=== PATIENT | female | born 1945 | race Caucasian/White ===

== ENCOUNTER 2016-10-22 15:04 | Inpatient (IN) | payer OTHER, MEDICARE ==
[~2016-10-22] VITALS: Ht 157.5 cm; Wt 56.7 kg
--- NOTE | 2016-10-22 15:28 | ED GENERAL ADULT ---
History of Present Illness General Chief Complaint: Neuro Symptoms/ Deficit Stated Complaint: SLURRED SPEACH YESTERDAY Source: patient, family Exam Limitations: no limitations Vital Signs & Intake/Output Vital Signs & Intake/Output Vital Signs Date Time Temp Pulse Resp B/P Pulse O2 O2 Flow FiO2 Ox Delivery Rate 10/22 1642 96.9 79 20 142/75 98 Room Air 10/22 1510 97.7 88 18 148/96 99 Room Air Allergies Coded Allergies: Fish Containing Products (Severe, ANAPHYLAXIS 10/22/16) Sulfa (Sulfonamide Antibiotics) (Severe, RASH 10/22/16) Triage Note: 71 Y/O FEMALE STATES SHE WAS "HAVING TROUBLE" SPEAKING FOR APPROX 4 HOURS YESTERDAY. STATES "SHE WASNT MAKING ANY SENSE". PT AND FAMILY DENY NOTING ANY FACIAL DROOP OR ARM DRIFT STATING THE ONLY DEFICIT WAS THE SPEECH. PT DENIES ANY COMPLAINTS AT PRESENT. "I FEEL GOOD". SPEECH CLEAR. Triage Nurses Notes Reviewed? yes Onset: Gradual Duration: hour(s): (4-6 HRS) Timing: remote history Injury Environment: home Severity: moderate Severity Numbers: 7 No Modifying Factors: none HPI: Patient is a 71-year-old female presenting to the emergency Department via family with chief complaint of slurred speech and difficulty thinking that lasted approximately 4-6 hours yesterday. Patient was at home when symptoms started. Her was notified, patient did not want to go to bed emergency department for evaluation. They made an appointment with primary care physician today and the primary care physician sent him to the ER for evaluation. Patient reports history of mini strokes 10 years ago. Denies being on a blood thinner. She currently still smokes heavily per family. Denies any facial droop, weakness. Per family she is PRETTY much at baseline at this time, but still seems a little confused per family. Denies abdominal pain. No chest pain or shortness of breath. No palpitations. Denies any recent upper respiratory symptoms or congestion. No fevers or chills. No neck or back pain. (ALIRIO CROWELL,FAYE) Reconcile Medications Amlodipine Besylate 5 MG TABLET 1 TAB PO DAILY BP (Reported) Aspirin (Ecotrin*) 81 MG TABLET.DR 1 TAB PO DAILY HEART/BLOOD (Reported) Cholecalciferol (Vitamin D3) (Vitamin D) 2,000 UNIT TABLET 1 TAB PO DAILY SUPPLEMENT (Reported) Cyanocobalamin (Vitamin B-12) 1,000 MCG TABLET 1 TAB PO DAILY SUPPLEMENT ( Reported) Levothyroxine Sodium 88 MCG TABLET 1 TAB PO DAILY THYROID (Reported) Lovastatin 20 MG TABLET 1 TAB PO DAILY CHOLESTEROL (Reported) (ELIECER ASTORGA,DION) Past History Travel History Traveled to [place] past 21 day No Medical History Any Pertinent Medical History? 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 No (FAYE CANO) Review of Systems Review of Systems Constitutional: Reports: no symptoms. Comments Review of systems: See HPI, All other systems negative. Constitutional, no chills fever or weight loss HEENT: No visual changes no sore throat no congestion Cardiovascular: No chest pain ,palpitation , orthopnea or ankle swelling Skin, no jaundice no rashes Respiratory: No dyspnea cough sputum or hemoptysis GI: No nausea no vomiting : No dysuria No hematuria Muscle skeletal: no back pain, no neck pain, Neurologic: No numbness NO ALVA Psych: No stress anxiety Immunology: No splenectomy or history of AIDS (FAYE CANO) Physical Exam Physical Exam General Appearance: well developed/nourished, no apparent distress, alert, awake , comfortable Comments: Well-developed well-nourished person in no acute distress HEENT:extraocular motion intact, no nystagmus. Pupils equally round and reactive to light and accommodation. Left eyelid ptosis but it responds to elevation. Nose is atraumatic. External auditory canal and Tympanic membranes clear. Pharynx normal. No swelling or edema. Neck: Supple, no lymphadenopathy, normal range of motion without pain or tenderness Back: NontendeR Cardiovascular: Regular rate and rhythms no murmurs rubs or gallops, normal JVP Respiratory: Chest nontender. No respiratory distress.breath sounds clear to auscultation bilaterally Extremity: No edema, no calf tenderness to palpation, normal and equal pulses. Neuro: Alert oriented x3, motor sensory normal, cranial nerves II through XII grossly intact. Negative Romberg. Negative drop arm test. Speech is clear. Skin: No appreciable rash on exposed skin, skin is warm and dry. Psych: Mood and affect is normal, memory and judgment is normal. Core Measures ACS in differential dx? Yes CVA/TIA Diagnosis: Yes Severe Sepsis Present: No Septic Shock Present: No (ALIRIO CROWELL,FAYE) Progress Differential Diagnoses I considered the following diagnoses in my evaluation of the patient: TIA, CVA, electrolyte abnormality, dehydration, UTI, pneumonia Plan of Care: Orders Procedure Date/time Status Regular Diet 10/23 B Active Heart Healthy Diet 10/22 D Complete Patient Data 10/22 1733 Active OXYGEN SETUP (GEN) 10/22 1627 Active Saline Lock 10/22 1627 Active Admit to inpatient 10/22 1627 Active Vital Signs 10/22 1627 Active Activity/Ambulation 10/22 1627 Active Code Status 10/22 1627 Active Telemetry/[place] 10/22 1518 Active URINALYSIS 10/22 1518 Active TROPONIN LEVEL 10/22 1518 Complete PARTIAL THROMBOPLASTIN TIME 10/22 1518 Complete PROTHROMBIN TIME 10/22 1518 Complete COMPREHENSIVE METABOLIC PANEL 10/22 1518 Complete CBC WITHOUT DIFFERENTIAL 10/22 1518 Complete EKG 10/22 1518 Active Laboratory Tests 10/22/16 1648: Urine Color Pending, Urine Clarity Pending, Urine pH Pending, Ur Specific [place] Pending, Urine Protein Pending, Urine Ketones Pending, Urine Nitrite Pending, Urine Bilirubin Pending, Urine Urobilinogen Pending, Ur Leukocyte Esterase Pending, Ur Microscopic SEDIMENT EXAMINED, Urine RBC Pending, Urine Hemoglobin Pending, Urine Glucose Pending 10/22/16 1540: Anion Gap 14, Estimated GFR > 60, BUN/Creatinine Ratio 22.9, Glucose 87, Calcium 9.4, Total Bilirubin 0.4, AST 13 L, ALT 25, Alkaline Phosphatase 83, Troponin I < 0.01, Total Protein 7.2, Albumin 4.0, Globulin 3.2, Albumin/Globulin Ratio 1.3 , PT 11.1, INR 1.06, APTT 36, CBC w Diff NO MAN DIFF REQ, RBC 4.74, MCV 82.9, MCH 27.3, RDW 15.1 H, MPV 9.0, Gran % 70.4, Lymphocytes % 21.1, Monocytes % 6.6 , Eosinophils % 1.4, Basophils % 0.5, Absolute Granulocytes 10.2 H, Absolute Lymphocytes 3.1, Absolute Monocytes 1.0 H, Absolute Eosinophils 0.2, Absolute Basophils 0.1, PUBS MCHC 33.0 Diagnostic Imaging: Viewed by Me: Radiology Read, CT Scan. Discussed w/RAD: Radiology Read, CT Scan. Radiology Impression: COMPARISON: None. TECHNIQUE: Contiguous axial imaging was performed from the skull base to vertex without intravenous administration of contrast. DLP: 529.16 mGy-cm. FINDINGS: There is no evidence of acute intracranial hemorrhage or territorial infarction. No abnormal mass effect or midline shift is seen. Zhou to white matter differentiation is well preserved. No extra-axial fluid collections are identified. The ventricles and sulci are commensurately prominent consistent with mild diffuse volume loss. There are patchy areas of low attenuation in the periventricular and subcortical white matter, most consistent with microvascular ischemic disease. There are areas of low attenuation in the bilateral basal ganglia and within the jose, consistent with chronic infarcts. There is diffuse heterogenous density from the body of the sphenoid bone and the clivus. There are degenerative changes in the temporomandibular joint. The soft tissues are unremarkable. The visualized mastoid air cells and paranasal sinuses are well-aerated. IMPRESSION: 1. There are no acute bleeds or territorial infarcts. 2. Heterogenous density is noted in the body of the sphenoid bone and the clivus, which may be consistent with an infiltrative process, a fibro-osseous process or Paget's disease. Recommend MRI scan for further assessment. 3. There are sequelae of microvascular ischemic disease, chronic infarcts and diffuse volume loss. Initial ED EKG: SINUS RHYTHM, 83 BPM, PROBABLE INFERIOR INFARCT AGE- INDETERMINATE Comments: On arrival patient is neurologically intact, left eyelid ptosis, mild confusion per family. Patient over CT hEAD, CBC, CMP, troponin, EKG, chest x-ray. Patient resting comfortably. Patient took a baby aspirin this morning, she'll be given 243 mg aspirin to complete a full dose aspirin. Patient family informed of all lab results and imaging study. CT shows questionable hyperdense mass on the sphenoid bone. It will be further clarified with MRI tomorrow. Patient will be admitted for CVA, neurology consultation. Patient passed a swallow evaluation. 10/22/2016 4:46:07 PMPatient was given a sip of water without coughing or choking. Patient then proceeded to drink entire cup of water without difficulty. Patient passed small evaluation. Meal tray ordered. PT SEEN AND EVALED BY DR GONZÁLES. (FAYE CANO) Departure Departure Time of Disposition: 1625 Disposition: STILL A PATIENT Condition: Stable Clinical Impression Primary Impression: CVA (cerebral vascular accident) Qualifiers: CVA mechanism: unspecified Qualified Code: I63.9 - Cerebral infarction, unspecified Referrals: SALLIE KHAN MD (PCP/Family) Departure Forms: Customer Survey General Discharge Information Admission Note Spoke With: VIANEY BREWER MD Documentation of Exam: Documentation of any treatments & extenuating circumstances including Concerns Regarding Discharge (functional status, medication knowledge or non-compliance, living conditions, etc.) that warrant an admission rather than observation: Patient requiring neuro consultation, MRI for further evaluation, serial neuro checks, discharge at this time would be medically harmful. (FAYE CANO) PA/DB2 SYSTEMS PROGRAMMER Co-Sign Statement Statement: ED Attending supervision documentation- x I saw and evaluated the patient. I have also reviewed all the pertinent lab results and diagnostic results. I agree with the findings and the plan of care as documented in the PA's/DB2 SYSTEMS PROGRAMMER's documentation. [] I have reviewed the ED Record and agree with the PA's/DB2 SYSTEMS PROGRAMMER's documentation. [] Additions or exceptions (if any) to the PAs/DB2 SYSTEMS PROGRAMMER's note and plan are summarized below: [] (ELIECER ASTORGA,DION) Procedures Additional Procedures Additional Procedures: SWALLOW STUDY Progress: Patient was able swallow thin liquids without choking or coughing without difficulty. (FAYE CANO) Critical Care Note Critical Care Note Critical Care Time: 30-74 min (FAYE CANO)
[2016-10-22 15:55] LABS: ABSOLUTE BASOPHIL COUNT 0.1 /CUMM (0.0-0.2); ABSOLUTE EOSINOPHIL COUNT 0.2 /CUMM (0.0-0.7); ABSOLUTE GRANULOCYTE CT 10.2 /CUMM (1.4-6.5); ABSOLUTE LYMPH COUNT 3.1 /CUMM (1.2-3.4); BASOPHIL % 0.5 % (0.0-2.0); EOSINOPHIL % 1.4 % (0-5); GRANULOCYTE % 70.4 % (42.2-75.2); HEMATOCRIT 39.3 % (37-47); MEAN CORPUSCULAR HGB 27.3 PG (27.0-31.0); MEAN CORPUSCULAR VOLUME 82.9 FL (81.0-99.0); PLATELET COUNT 374 /CUMM (130-400); RBC DISTRIBUTION WIDTH 15.1 % (11.5-14.5); RED BLOOD CELL CT 4.74 /CUMM (4.20-5.40); WHITE BLOOD CELL COUNT 14.5 /CUMM (4.8-10.8)
[2016-10-22 16:14] LABS: PT 11.1 SEC (9.4-12.5); PTT 36 SEC (25-37)
--- NOTE | 2016-10-22 16:17 | CT SCAN REPORT ---
EXAMINATION: CT HEAD WITHOUT CONTRAST CLINICAL INFORMATION: Slurred speech. Assess for intracranial pathology. COMPARISON: None. TECHNIQUE: Contiguous axial imaging was performed from the skull base to vertex without intravenous administration of contrast. DLP: 529.16 mGy-cm. FINDINGS: There is no evidence of acute intracranial hemorrhage or territorial infarction. No abnormal mass effect or midline shift is seen. Zhou to white matter differentiation is well preserved. No extra-axial fluid collections are identified. The ventricles and sulci are commensurately prominent consistent with mild diffuse volume loss. There are patchy areas of low attenuation in the periventricular and subcortical white matter, most consistent with microvascular ischemic disease. There are areas of low attenuation in the bilateral basal ganglia and within the jose, consistent with chronic infarcts. There is diffuse heterogenous density from the body of the sphenoid bone and the clivus. There are degenerative changes in the temporomandibular joint. The soft tissues are unremarkable. The visualized mastoid air cells and paranasal sinuses are well-aerated. IMPRESSION: 1. There are no acute bleeds or territorial infarcts. 2. Heterogenous density is noted in the body of the sphenoid bone and the clivus, which may be consistent with an infiltrative process, a fibro-osseous process or Paget's disease. Recommend MRI scan for further assessment. 3. There are sequelae of microvascular ischemic disease, chronic infarcts and diffuse volume loss.
--- NOTE | 2016-10-22 16:54 | RADIOLOGY REPORT ---
EXAMINATION: XR PORTABLE CHEST CLINICAL INFORMATION: Confusion. Cardiomegaly. Evaluate for pneumonia. COMPARISON: None. TECHNIQUE: Portable view of the chest was obtained. FINDINGS: Single AP view of the chest demonstrates pulmonary hypoinflation. Of note, there are nodular opacities within the right upper lobe and right lung base, measuring approximately 2.4 x 3.4 cm and 1.4 cm respectively. There is minimal dependent atelectasis. Cardiac mediastinal contours are within normal limits. Soft tissues appear unremarkable. No acute osseous abnormality is demonstrated. IMPRESSION: No focal airspace consolidation to suggest infection. Nodular opacities within the right upper lobe and right lung base, measuring up to 2.4 x 3.4 cm within the right upper lobe. These nodular opacities are indeterminate. Malignancy cannot be excluded. Recommend correlation with contrast-enhanced chest CT.
[2016-10-22] MEDS ORDERED: LEVOTHYROXINE88 MCG PO (16:55)
[2016-10-22] MEDS ORDERED: VITAMIN B-121000 MC3 PO (16:56)
[2016-10-22] MEDS ORDERED: AMLODIPINE BESYL5 M1 PO (16:56)
[2016-10-22] MEDS ORDERED: LOVASTATIN20 M1 PO (16:56)
[2016-10-22] MEDS ORDERED: VITAMIN D2000 UNI1 PO (16:56)
[2016-10-22] MEDS ORDERED: ASPIRIN EC81 M1 PO (16:57)
--- NOTE | 2016-10-22 17:49 | History & Physical ---
SUBHASH ASTORGA,[facility] 10/22/16 1748: General Information and HPI MD Statement: I have seen and personally examined NERY AUSTIN and documented this H&P. The patient is a 71 year old F who presented with a patient stated chief complaint of slurred speech on the morning of 10/21/2016. Source of Information: patient, family, old records Exam Limitations: no limitations History of Present Illness: Ms. Rich is a 71-year-old female with past medical history of pituitary adenoma , non-Hodgkin lymphoma for the last 10 years and questionable TIA approximately 10 years ago presented to the emergency department on 10/22/2016 after experiencing a transient episode of slurred speech. The patient's family stated that her episode of transient or slurred speech began yesterday 10/21/2016 at approximately 8 AM when the patient was having breakfast. The patient was unable to articulate any conversation like she could normally previously do. The patient then went to sleep from 9 AM to approximately 4 PM when she woke up and stated that she felt better. During the episode of transient slurred speech the patient denies any weakness, bowel or bladder dysfunction or drooling and any facial muscle abnormalities. Over the course of the evening the patient reported no further complaints. This morning she woke up and went to visit her primary care physician barrel raiser helper Dr. Allison. When the above history was related to Dr. Allison he recommended that she come to the emergency department immediately. The family of the patient does state that over the last 5-7 years the patient has had a gradual decline in mental status and function. They state that she has deteriorated and has a harder time finding the correct words to be able to articulate the way she is feeling. The patient denies any fever, chills, nausea, vomiting although does does state that she has had increasing dizziness. Allergies/Medications Allergies: Coded Allergies: Fish Containing Products (Severe, ANAPHYLAXIS 10/22/16) Sulfa (Sulfonamide Antibiotics) (Severe, RASH 10/22/16) Compliance With Home Meds: GOOD Past History Travel History Traveled to [place] past 21 day No Medical History Neurological: TIA EENT: NONE Cardiovascular: HIGH CHOLESTEROL Respiratory: NONE Gastrointestinal: NONE Hepatic: NONE Renal: NONE Musculoskeletal: NONE Psychiatric: NONE Endocrine: "THYROID" Blood Disorders: NONE Cancer(s): LYMPHOMA DIRECTOR OF LITIGATION/Reproductive: NONE Surgical History Surgical History: non-contributory Past Family/Social History Family History Relations & Conditions if any FATHER, , Age 90s. MOTHER, , Age 90. Psychosocial History Where do you live? Home Who Do You Live With? spouse Services at Home: None Primary Language: Jordanian Smoking Status: Current Everyday Smoker (Approximaely 30 pack year ) ETOH Use: occasional use Illicit Drug Use: denies illicit drug use Living Will? yes Functional Ability ADLs Independent: dressing, eating, toileting, bathing. Ambulation: independent IADLs Needs Assist: shopping, housework, finances, food prep, telephone, transportation, medication admin. Employment History Employment Retired Review of Systems Review of Systems Constitutional: Denies: chills, fever, malaise, weakness. Cardiovascular: Reports: palpitations. Denies: chest pain, edema, orthopena. Respiratory: Denies: cough, hemoptysis, orthopnea, short of breath. GI: Denies: bloating, constipation, diarrhea, distention. Genitourinary: Reports: frequency. Denies: discharge, dysuria, hematuria, hesitation. Musculoskeletal: Denies: back pain, gout, joint pain, joint swelling. Exam & Diagnostic Data Last 24 Hrs of Vital Signs/I&O Vital Signs Date Time Temp Pulse Resp B/P Pulse O2 O2 Flow FiO2 Ox Delivery Rate 10/22 1912 96.6 84 18 128/81 95 Room Air 10/22 1642 96.9 79 20 142/75 98 Room Air 10/22 1510 97.7 88 18 148/96 99 Room Air Intake & Output 10/22 1600 10/22 0800 10/22 0000 Intake Total Output Total Balance Patient 56.245 kg Weight Physical Exam General Appearance Alert, Oriented X3, Cooperative, No Acute Distress HEENT PERRLA, Mucous Membr. moist/pink Lymphatic Axillary nl Cardiovascular Regular Rate, Normal S1, Normal S2 Lungs Clear to Auscultation, Normal Air Movement Abdomen Normal Bowel Sounds, Soft, No Tenderness Neurological Normal Gait, Normal Speech, Strength at 5/5 X4 Ext, Normal Tone, Cranial Nerves 3-12 NL Extremities No Clubbing, No Cyanosis, No Edema Vascular Normal Pulses Last 24 Hrs of Labs/Po: Laboratory Tests 10/22/16 1648: Urine Color YEL, Urine Clarity CLEAR, Urine pH 6.0, Ur Specific [place] >= 1.030 , Urine Protein NEG, Urine Ketones NEG, Urine Nitrite NEG, Urine Bilirubin NEG, Urine Urobilinogen 0.2, Ur Leukocyte Esterase NEG, Ur Microscopic SEDIMENT EXAMINED, Urine RBC 5-10 H, Urine WBC 1-3 H, Ur Epithelial Cells FEW, Urine Mucus MOD H, Urine Hemoglobin SMALL H, Urine Glucose NEG 10/22/16 1540: Anion Gap 14, Estimated GFR > 60, BUN/Creatinine Ratio 22.9, Glucose 87, Calcium 9.4, Total Bilirubin 0.4, AST 13 L, ALT 25, Alkaline Phosphatase 83, Troponin I < 0.01, Total Protein 7.2, Albumin 4.0, Globulin 3.2, Albumin/Globulin Ratio 1.3 , PT 11.1, INR 1.06, APTT 36, CBC w Diff NO MAN DIFF REQ, RBC 4.74, MCV 82.9, MCH 27.3, RDW 15.1 H, MPV 9.0, Gran % 70.4, Lymphocytes % 21.1, Monocytes % 6.6 , Eosinophils % 1.4, Basophils % 0.5, Absolute Granulocytes 10.2 H, Absolute Lymphocytes 3.1, Absolute Monocytes 1.0 H, Absolute Eosinophils 0.2, Absolute Basophils 0.1, PUBS MCHC 33.0 Assessment/Plan Assessment: This is a 71-year-old female with past medical history of non-Hodgkin's lymphoma and past TIA who presented to the emergency hospital at [facility] on 2016 after a transient episode of 4 hours of slurring speech. The pa #TIA most likely caused by combination of hypertension, accelerated atherosclerosis (likely due to long standing smoking history) Neurological consult in a.m. MRI in a.m. Carotid Dopplers bilaterally to rule out stenosis. Echocardiogram to rule out any structural heart disease which, emboli may predispose the patient to TIA symptoms Continue aspirin. Q4 Neurochecks Continue statin. High dose shown to provide anti-inflammatory properties. #Rule out ACS Admit the patient to telemetry floor for continuous monitoring Serial troponins and EKG Rule out any cardiac dysarhythmias #History of non-Hodgkin's lymphoma A courtesy call has been placed with the service of Dr. Db So MD Patient can follow-up as an outpatient #Incidental findings on head CT rule out Likely Paget's disease Although alkaline phosphatase is is normal. Continue trending for hypercalcemia. Will follow up with an MRI in the a.m. #Hypertension Allow for permissive hypertension however ensure blood pressure does not exceed 180 systolic over 110 diastolic Continue Amlodipine if pressure exceeds 180/110, or begin in the AM. #History of Hypothyroidism Continue levothyroxin Consider TSH and free T4 in a.m. #General conditioning PT eval in a.m. Swallow eval in a.m. Maintain aspiration precautions. Patients with TIA and stroke aspiration pneumonia can be a significant contributing factor leading to morbidity mortality. #Diet Heart healthy #DVT prophylaxis Lovenox #Code Full code As Ranked By This Provider Problem List: 1. Transient ischemic attack Qualifiers Transient cerebral ischemia type: unspecified Qualified Code: G45.9 - Transient cerebral ischemic attack, unspecified 2. CVA (cerebral vascular accident) Qualifiers CVA mechanism: unspecified Qualified Code: I63.9 - Cerebral infarction, unspecified Core Measures/Miscellaneous Acute Coronary Syndrome ACS Diagnosis: No Cerebrovascular Accident CVA/TIA Diagnosis: Yes Congestive Heart Failure CHF Diagnosis: No Venous Thromboembolism VTE Risk Factors: Age > 40 VTE Prophylaxis Ordered Inpt: Mech & Pharm No Mech VTE prophylaxis d/t: No contraindications No VTE Pharm Prophylaxis d/t: No contraindications VTE Diagnosis: No VTE Type: NONE VTE Confirmed by (Test): NONE Severe Sepsis Severe Sepsis Present: No Septic Shock Septic Shock Present: No Miscellaneous Documentation Attending Case Discussed With: VIANEY BREWER MD Primary Care Physician: SALLIE KHAN MD Patient sees these Specialists NA Level of Patient Care: Telemetry JESSICA REA MD 10/22/16 1751: Resident Review Statement Resident Statement: examined this patient, discussed with applications intern, agreed with applications intern, reviewed EMR data (avail), reviewed images Other Findings: 71 year old woman, with a past medical history of Non-Hodgkins Lymphoma, diagnosed 10 years ago, had been on Rituximab x 10 years, stopped [address] Patel, history of Pituitary removal 30 years ago, stroke 10 years ago on baby Aspirin, hypertension, Hyperlipidemia, hypothyroidism, presents with a history of slurred speech that started yesterday at 8 am, associated with word finding difficulty, and difficulty thinking and confusion. The symptoms lasted for almost 6 hours as per the family, the intensity and frequency slowly decreasing to baseline. No associated chest pain, palpitations, dizziness, visual changes, drooping of the mouth, drooling or numbness and weakness of any extremities. The patients , and 2 daughters who were at bed side reported the patient has been declining over all in functionality and cognition since the past 5 years. Her gait has become unstable, she feels tired all the time, sleeps most of the day, and has intermittent memory issue but the aforementioned symptoms were sudden and acute. She did report palpitations in the past that settle on their own. Denied N/V/D. No urinary or bowel incontinence or symptoms. Was evaluated once after a fall and was found to have dehydration. The reported her falling all of a sudden at times as well. Smoker 10 cig/day x 60 years, stopped alcohol 10 years ago, no drugs, compliant with medications. Mother passed at 94, father at 90. +Smokers cough. No sick contacts. Afebrile, HR 88, RR 18, BP 148/96 and O2 Sat 99% on RA On exam: AAO x 3, in no acute distress. Dry mucous membranes, PERRLA CVS: RRR, no murmurs, S1 and S2 heard Respiratory: Mild bilateral wheeze. Abd: NT, ND, BS+ Neuro: NO facial droop, all sensations intact, CN intact, motor and sensory functions intact, power 5/5 in all extremities Peripheral pulses palpable, no edema WBC 14.5, no bands, BUN/Cr 16/0.7, Alk phos 83, AST/ALT 13/25, trop < 0.01 CT Head: No acute bleeds or territorial infarcts. Heterogenous density noted in the body of the sphenoid bone and the clivus,? infiltrative process vs ?fibro- osseous process or Paget's disease. There are sequelae of microvascular ischemic disease, chronic infarcts and diffuse volume loss. CXR: Nodular opacities within the right upper lobe and right lung base, measuring up to 2.4 x 3.4 cm within the right upper lobe, indeterminate, malignancy cannot be excluded. EKG: NSR @ 83, NO ST-T wave changes Assessment: 1. TIA vs CVA 2. New findings on CT Head with possible Pagets disease 3. New nodular opacity in RUL and RLL 4. Leukocytosis 5. Smokers cough 6. Smoker 7. Hypertension 8. Hyperlipidemia 9. Hypothyroidism 10. History of NHL was on Rituximab Plan: Admit to Tele Vitals every shift 1. TIA vs CVA: Patient with a history of stroke 10 years ago, on lovastatin 20 mg, and baby aspirin, presented with acute symptoms of slurred speech, and cognitive deficit including word finding difficulties and confusion at 8 am yesterday lasting approx. 6 hours, resolving with functional capacity and cognition returning to baseline. CT shows now evidence of new infarct but squelae of micro vascular changes, history of HLD, HTN and on baby aspirin. -Will get MRI done -High dose ASA given in the ED -Will give loading dose of Plavix, as patient likely failed ASA therapy -Will then continue n dual therapy ASA 81 and Plavix 75 mg PO Daily -Will change to Atorvastatin 80 mg PO Daily from Lovastatin 20 mg -Will get trops and EKg done at 10 pm and 6 am to rule out ACS -Will get ECHO done -Will monitor on Tele for possible arrhythmia -Patient was already having food when the medical team went for evaluation -Will get official swallow eval -PT/OT therapy -Carotid US -Neuro Consult 2. New findings on CT Head with possible Pagets disease: - Alp Phos normal - Will get MRI done for detailed evaluation of the CT head findings - Possible outpatient workup and treatment 3. New nodular opacity in RUL and RLL: - Patient has been a heavy smoker, history of NHL. - May consider CT scan with IV contrast for further evaluation. Possibility of malignancy cannot be ruled out. 4. Leukocytosis: Afebrile, has dry cough, chronic likely secondary to smoking, mild wheezing with cough, no upper respiratory or urinary symptoms otherwise - Will continue to monitor off antibiotics 5. Smoker: Currently no urge, but may start Nicotine patch - Smokes 10 cig/day x 60 years 7. Hypertension: -Uses Amlodipine at home -Will hold for permissive hypertension -BP 148/96 128/81 with no intervention 8. Hyperlipidemia: -Will change to Atorvastatin 80 mg PO Daily from Lovastatin 20 mg 9. Hypothyroidism: c/w Levothyroxine 10. History of NHL was on Rituximab: Courtesu call to Dr. So/Dr. Patel 11. Heart Healthy Diet 12. Pain pathway: Mild, Moderate and Severe ordered 13. SC Lovenox 14. FULL CODE: temporarily, but do not want to live on life support for prolonged time as per living will as per Case discussed with Dr. Jimenez BREWER MD,VIANEY 10/22/162127: General Information and HPI Allergies/Medications Home Med list Amlodipine Besylate 5 MG TABLET 1 TAB PO DAILY BP (Reported) PERMISSIVE HYPERTENSION Aspirin (Ecotrin*) 81 MG TABLET. 1 TAB PO DAILY HEART/BLOOD (Reported) Atorvastatin Calcium 80 MG TABLET 80 MG PO 1700 TIA Cholecalciferol (Vitamin D3) (Vitamin D) 2,000 UNIT TABLET 1 TAB PO DAILY SUPPLEMENT (Reported) Clopidogrel Bisulfate (Plavix) 75 MG TABLET 75 MG PO DAILY TIA Cyanocobalamin (Vitamin B-12) 1,000 MCG TABLET 1 TAB PO DAILY SUPPLEMENT ( Reported) Levothyroxine Sodium 88 MCG TABLET 1 TAB PO DAILY THYROID (Reported) Lovastatin 20 MG TABLET 1 TAB PO DAILY CHOLESTEROL (Reported) Reason to Stop at ADM: CHANGED TO ATORVASTATIN Attending MD Review Statement Attending Statement Attending MD Statement: examined this patient, discuss w/resident/PA/DOOR SLINGER, agreed w/resident/PA/DOOR SLINGER, reviewed EMR data (avail), discussed with nursing, reviewed images, amended to note Attending Assessment/Plan: The patient is a 71 yo female with h/o non-Hodgkin's Lymphoma (s/p Rituxan therapy- last doses 6 months ago, ?h/o maintenance doses), essential HTN, HL, hypothyroidism, and h/o "mini-stroke" 10 years ago presents in the [place] ED after a 4 hour episode of transient difficulty speaking and decreased cognition which occurred yesterday. Family stated that she is now approximately baseline, however has been weak recently. She denied any focal weakness or numbness. No headache, seizures, chest pain, dyspnea or other symptoms. She has been taking ASA 81 mg daily for at least 10 years. Physical Exam: VS: T 97.7, P 88, R 18, BP 148/96-142/75, PO 98-99% RA HEENT: eyes- PERRLA, EOMI dionicio- moist mucosa Neck: no bruits, no JVD or adenopathy Chest: diminished BS, clear Cor: RRR, nl S1, S2, w/o murm Abd: BS+, soft, NT, - masses or HSM Ext: no edema Neuro: alert & oriented x 3, non-focal exam, gait not tested (patient states OK, family ?unsteady) Labs/Tests- as above Impression/Plan: #Transient Aphasia/Cognition Decline- 4 hour episode that occurred yesterday. Patient with h/o "mini-stroke" 10 years ago and has been taking ASA 81 mg daily since that time. Concern that this may represent TIA or ?CVA (patient family states close to baseline). Doubt PRODUCT COORDINATOR involvement with lymphoma. Plan: Continue ASA 81 mg daily. Add Plavix 75 mg daily. MRI brain in morning. Carotid US. ECHO Cardiogram (TTE). Change statin to high potency- Atorvastatin 80 mg daily. Admit to telemetry - q4h neuro checks. Neurology consult. #H/O Non-Hodgkin's Lymphomaa- was being treated with Rituxan- last doses 6 months ago. Patient describes possible maintenance therapy? Plan: Will need records from Oncology. #RUL/RLL Nodules/Opacities- on CXR. No clinical infection. No fever/ leukocytosis. Plan: OP follow-up - CT. Observe off of Antibiotics- watch for fever/pulmonary symptoms. #Nicotine Dependence- currently smoker. Plan: Encourage smoking cessation. #Essential Hypertension - BP OK at present. Plan: Continue Amlodipine- maintain BP sys 140 range or greater. #Hyperlipidemia- was on Lovastatin. Plan: As above, will change to Atorvastatin. #Hypothyroid- clinically euthyroid. Plan: Continue Levothyroxine. #Abnormal Sphenoid Bone on CT Head- "Heterogenous density is noted in the body of the sphenoid bone and the clivus, which may be consistent with an infiltrative process, a fibro-osseous process or Paget's disease. Recommend MRI scan for further assessment." The patient has had a h/o pituitary surgery? Not clear if this may be related. Plan: MRI ordered.
--- NOTE | 2016-10-22 18:13 | Admission Certification ---
Admission Certification Certification Statement - As attending physician, I certify that at the time of - admission, based on clinical presentation, severity of - symptoms, need for further diagnostic testing and - therapeutic interventions, and risk of adverse outcomes - without in-hospital treatment, in my clinical assessment, - this patient requires an acute hospital stay for a minimum - of two nights or longer. I have also considered psychsocial - factors such as support system, advanced age, financial - issues, cognitive issues, and failed out-patient treatments, - past re-admission history, safety of patient, and lack of - compliance as applicable. Specific rationale supporting this admission is: The patient presents with transient (4 hour) episode of slurring of speech, cognitive difficulties, most c/w TIA or possible CVA. Needs admission to telemetry to monitor for arrhthmia, ECHO, carotid US, MRI brain, Plavix/ASA, neuro consult.
[2016-10-22 22:10] VITALS: BP 127/76
--- NOTE | 2016-10-23 05:37 | PN- Housestaff ---
SUBHASH ASTORGA,[facility] 10/23/16 0536: Subjective Follow-up For: ?TIA Tele-Events Since Last Visit: NA Patient in the ED Subjective: Ms Draper was seen and examined this morning. She is resting comfortably in bed and is still currently in the emergency department. Patient states that she had a tough night last night owing to the multiple interruptions that she had. She also had to use the bathroom twice and did not have a toilet in her room. Apart from that mentioned above the patient denies any neurological abnormalities and/or motor weaknesses. Patient states that she feels well and is eager to be discharged. Patient denies any changes to her vision, auditory, sensation, or speech. Patient denies any fever, chills, nausea, vomiting. Review of Systems Constitutional: Reports: see HPI. Objective Last 24 Hrs of Vital Signs/I&O Vital Signs Date Time Temp Pulse Resp B/P Pulse O2 O2 Flow FiO2 Ox Delivery Rate 10/23 0818 96.9 79 20 126/81 96 Room Air 10/23 0800 96 Room Air 10/23 0800 96.9 79 20 126/81 96 Room Air 10/23 0621 97.9 74 18 133/76 98 10/22 2210 97.4 75 20 127/76 95 Room Air 10/22 2155 97.4 75 20 127/76 95 Room Air 10/22 1912 96.6 84 18 128/81 95 Room Air 10/22 1642 96.9 79 20 142/75 98 Room Air 10/22 1510 97.7 88 18 148/96 99 Room Air Intake & Output 10/23 1600 10/23 0800 10/23 0000 Intake Total 1160 Output Total 800 Balance 360 Intake, Oral 1160 Output, Urine 800 Patient 56.699 kg Weight Physical Exam General Appearance: Alert, Oriented X3, Cooperative, No Acute Distress Lymphatic: Axillary nl Cardiovascular: Regular Rate, Normal S1, Normal S2 Lungs: Increased breath sounds Bilaterally. ?Expiratory Wheezing Right Abdomen: Normal Bowel Sounds, Soft, No Tenderness Neurological: Normal Speech, Strength at 5/5 X4 Ext, Normal Tone, Cranial Nerves 3-12 NL Extremities: No Cyanosis, No Edema Vascular: Normal Pulses Current Medications: Current Medications Sig/Nadia Start time Last Medication Dose Route Stop Time Status Admin Acetaminophen 650 MG Q6P PRN 10/22 2029 AC PO Aspirin 0 .STK-MED ONE 10/22 1741 DC PO Aspirin 243 MG ONCE ONE 10/22 1645 DC 10/22 PO 10/22 1646 1745 Aspirin Buffered 81 MG DAILY 10/23 1000 AC 10/23 PO 1000 Atorvastatin Calcium 80 MG 1700 10/22 2030 AC 10/22 PO 2111 Cholecalciferol 2,000 IU DAILY 10/23 1000 AC 10/23 PO 1000 Clopidogrel Bisulfate 75 MG DAILY 10/23 1000 AC 10/23 PO 1000 Clopidogrel Bisulfate 0 .STK-MED ONE 10/23 0854 DC PO Clopidogrel Bisulfate 0 .STK-MED ONE 10/22 2051 DC PO Clopidogrel Bisulfate 300 MG ONCE ONE 10/22 2029 DC 10/22 PO 10/22 Cyanocobalamin 1,000 MCG DAILY 10/23 1000 AC 10/23 PO 1000 Enoxaparin Sodium 40 MG 2100 10/23 2099 AC SC Enoxaparin Sodium 0 .STK-MED ONE 10/22 2051 DC SC Enoxaparin Sodium 40 MG DAILY 10/22 2018 DC 10/22 SC 2110 Levothyroxine Sodium 0.088 MG DAILY 10/23 1000 AC 10/23 PO 1000 Oxycodone/ 1 TAB Q6P PRN 10/22 2029 AC Acetaminophen PO Oxycodone/ 2 TAB Q6P PRN 10/22 2029 AC Acetaminophen PO Polyethylene Glycol 17 GM DAILY PRN 10/22 2029 AC PO Senna/Docusate Sodium 1 TAB DAILY PRN 10/22 2030 AC PO Last 24 Hrs of Lab/Po Results Last 24 Hrs of Labs/Mics: Laboratory Tests 10/23/16 0615: Troponin I < 0.01, Triglycerides 75, Cholesterol 137, LDL Cholesterol, Calc 65, HDL Cholesterol 57, Cholesterol/HDL Ratio 2 10/22/16 2200: Troponin I < 0.01 10/22/16 1648: Urine Color YEL, Urine Clarity CLEAR, Urine pH 6.0, Ur Specific [place] >= 1.030 , Urine Protein NEG, Urine Ketones NEG, Urine Nitrite NEG, Urine Bilirubin NEG, Urine Urobilinogen 0.2, Ur Leukocyte Esterase NEG, Ur Microscopic SEDIMENT EXAMINED, Urine RBC 5-10 H, Urine WBC 1-3 H, Ur Epithelial Cells FEW, Urine Mucus MOD H, Urine Hemoglobin SMALL H, Urine Glucose NEG 10/22/16 1540: Anion Gap 14, Estimated GFR > 60, BUN/Creatinine Ratio 22.9, Glucose 87, Calcium 9.4, Total Bilirubin 0.4, AST 13 L, ALT 25, Alkaline Phosphatase 83, Troponin I < 0.01, Total Protein 7.2, Albumin 4.0, Globulin 3.2, Albumin/Globulin Ratio 1.3 , PT 11.1, INR 1.06, APTT 36, CBC w Diff NO MAN DIFF REQ, RBC 4.74, MCV 82.9, MCH 27.3, RDW 15.1 H, MPV 9.0, Gran % 70.4, Lymphocytes % 21.1, Monocytes % 6.6 , Eosinophils % 1.4, Basophils % 0.5, Absolute Granulocytes 10.2 H, Absolute Lymphocytes 3.1, Absolute Monocytes 1.0 H, Absolute Eosinophils 0.2, Absolute Basophils 0.1, PUBS MCHC 33.0 Orders Radiology Findings: SERVICE DATE: 10/23/16-2020 EXAM TYPE: MRI - MRI-HEAD W/O LEILANI MR BRAIN WITHOUT CONTRAST CLINICAL INFORMATION: Slurred speech with word finding difficulty. Question Paget's disease on CT head. COMPARISON: Head CT from 10/22/2015. TECHNIQUE: MRI of the brain without contrast was obtained using routine sequences. FINDINGS: There are a few subacute lacunar infarcts within the left frontal lobe on image 61 and 57 of series 3 that exhibit increased signal on diffusion-weighted imaging and intermediate signal on the ADC map. No additional acute infarcts are appreciated. There are multiple punctate foci of susceptibility artifact within the brainstem and within the right cerebellum, likely chronic petechial microhemorrhages. There is global cerebral volume loss. T2 signal changes throughout the supratentorial white matter and brainstem suggest moderate chronic microangiopathy. There are multiple chronic lacunar infarcts within the brainstem. Chronic lacunar infarcts within the deep barajas nuclei bilaterally. The major arterial flow voids are maintained. Paranasal sinuses and mastoid air cells are well aerated. Cerebellar tonsillar position is normal. There is heterogeneous marrow signal within the clivus. The boundaries of the sphenoid sinuses are difficult to evaluate on this MRI in the previous CT. In light of the prior CT findings, further evaluation with a bone scan and possible central skull base protocol MRI with and without IV contrast would be helpful in further assessment. IMPRESSION: - There are a few subacute lacunar infarcts within the left frontal lobe. - There is heterogeneous marrow signal within the clivus. The boundaries of the sphenoid sinuses are difficult to evaluate on this MRI and the previous CT. In light of the prior CT findings, further evaluation with a bone scan and possible central skull base protocol MRI with and without IV contrast would be helpful in further assessment. 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 DICTATED BY: HARDIK SIERRA MD Miscellaneous Findings: SERVICE DATE: 10/22/16 EXAM TYPE: US - [id number] DOPPLER EXAMINATION: DUPLEX BILATERAL CAROTID ULTRASOUND CLINICAL INFORMATION: Aphasia. Headache. Hypertension. COMPARISON: None. TECHNIQUE: Real-time ultrasound and Doppler techniques (integrating B-mode 2D vascular images, Doppler spectral analysis and color flow Doppler imaging) were utilized to interrogate the extracranial carotid and vertebral arteries bilaterally. The degree of stenosis determined by criteria similar to NASCET. FINDINGS: Right side: 1. Small amount of plaque is seen in the ECA/ICA region. The right CCA/ICA is tortuous. 2. The common carotid artery velocity is 74 cm/s. 3. The internal carotid artery velocities are 43 cm/s systolic and 18 cm/s diastolic. 4. The external carotid artery velocity is 71 cm/s. Left side: 1. No appreciable plaque is seen in the ECA/ICA region. 2. The common carotid artery velocity is 88 cm/s. 3. The internal carotid artery velocities are 43 cm/s systolic and 18 cm/s diastolic. 4. The external carotid artery velocity is 60 cm/s. ADDITIONAL FINDINGS: 1. The vertebral arteries show antegrade flow. IMPRESSION: 1. RIGHT: Minimal, nonhemodynamically significant stenosis of the proximal right internal carotid artery corresponding to a 0-49% stenosis by velocity criteria. 2. LEFT: No significant stenosis of the proximal left internal carotid artery by velocity criteria. 3. No evidence for hemodynamically significant stenosis in the external carotid arteries. DICTATED BY: ILDA MARCH MD SERVICE DATE: 10/23/16 EXAM TYPE: MRI - MRI-HEAD W/O LEILANI MR BRAIN WITHOUT CONTRAST CLINICAL INFORMATION: Slurred speech with word finding difficulty. Question Paget's disease on CT head. COMPARISON: Head CT from 10/22/2015. TECHNIQUE: MRI of the brain without contrast was obtained using routine sequences. FINDINGS: There are a few subacute lacunar infarcts within the left frontal lobe on image 61 and 57 of series 3 that exhibit increased signal on diffusion-weighted imaging and intermediate signal on the ADC map. No additional acute infarcts are appreciated. There are multiple punctate foci of susceptibility artifact within the brainstem and within the right cerebellum, likely chronic petechial microhemorrhages. There is global cerebral volume loss. T2 signal changes throughout the supratentorial white matter and brainstem suggest moderate chronic microangiopathy. There are multiple chronic lacunar infarcts within the brainstem. Chronic lacunar infarcts within the deep barajas nuclei bilaterally. The major arterial flow voids are maintained. Paranasal sinuses and mastoid air cells are well aerated. Cerebellar tonsillar position is normal. There is heterogeneous marrow signal within the clivus. The boundaries of the sphenoid sinuses are difficult to evaluate on this MRI in the previous CT. In light of the prior CT findings, further evaluation with a bone scan and possible central skull base protocol MRI with and without IV contrast would be helpful in further assessment. IMPRESSION: - There are a few subacute lacunar infarcts within the left frontal lobe. - There is heterogeneous marrow signal within the clivus. The boundaries of the sphenoid sinuses are difficult to evaluate on this MRI and the previous CT. In light of the prior CT findings, further evaluation with a bone scan and possible central skull base protocol MRI with and without IV contrast would be helpful in further assessment. 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 DICTATED BY: HARDIK SIERRA MD Assessment/Plan Assessment: This is a 71-year-old female with past medical history of non-Hodgkin's lymphoma and past TIA who presented to the emergency hospital at [facility] on 2016 after a transient episode of 4 hours of slurring speech. The patient had a previous episode of questionable TIA approximately 10 years ago. #TIA most likely caused by combination of hypertension, accelerated atherosclerosis (likely due to long standing smoking history) Neurological recommended patient remain on telemetry to rule out any dysrhythmias. Neurology service for the recommended continuing aspirin, status and Plavix at discharge. Further reevaluation of MRI showed that the patient may have suffered from a subacute lacunar infarct within the left frontal lobe. Carotid Dopplers bilaterally to rule out stenosis. Echocardiogram to rule out any structural heart disease which, emboli may predispose the patient to TIA symptoms Continue aspirin. Q4 Neurochecks Continue statin. High dose shown to provide anti-inflammatory properties. #Rule out ACS Admit the patient to telemetry floor for continuous monitoring Serial troponins and EKG: all were less than: 0.01, 0.01, 0.01 Rule out any cardiac dysarhythmias Patient scheduled for echocardiogram. If echocardiogram is normal patient will likely be discharged this afternoon and likely have to follow up with model technician next week. #History of non-Hodgkin's lymphoma A courtesy call has been placed with the service of Dr. Db So MD Patient can follow-up as an outpatient #Incidental findings on head CT rule out Likely Paget's disease Although alkaline phosphatase is is normal. Continue trending for hypercalcemia. #Hypertension Blood pressure this morning 126/81. Allow for permissive hypertension however ensure blood pressure does not exceed 180 systolic over 110 diastolic Continue Amlodipine if pressure exceeds 180/110, or begin in the AM. #History of Hypothyroidism Continue levothyroxin Consider TSH and free T4 in a.m. #General conditioning PT eval in a.m. PT evaluation done this a.m. did not require any skilled acute rehabilitation services. Swallow eval in a.m. Maintain aspiration precautions. Patients with TIA and stroke aspiration pneumonia can be a significant contributing factor leading to morbidity mortality. Smoking cessation counseling given to the patient this a.m. Patient was not interested in a nicotine patch. #Diet Heart healthy #DVT prophylaxis Lovenox #Code Full code Problem List: 1. Transient ischemic attack 2. CVA (cerebral vascular accident) Pain Ratin Pain Location: No Pain Reported Pain Goal: Remain pain free Pain Plan: Tylenol PRN Tomorrow's Labs & Rationales: None Patient's Concerns: This is a 71-year-old female with past medical history of non-Hodgkin's lymphoma and past TIA who presented to the emergency hospital at [facility] on 2016 after a transient episode of 4 hours of slurring speech. The patient did have a similar episode of questionable TIA approximately 10 years ago. #TIA most likely caused by combination of hypertension, accelerated atherosclerosis (likely due to long standing smoking history) MRI - Results received. Carotid Dopplers bilaterally to rule out stenosis: No significant stenosis on the left right internal carotid artery corresponding to 0-49% stenosis. Echocardiogram to rule out any structural heart disease which, emboli may predispose the patient to TIA symptoms, Pending Continue aspirin. Q4 Neurochecks Continue statin. High dose statin shown to provide anti-inflammatory properties. #Rule out ACS Admit the patient to telemetry floor for continuous monitoring Serial troponins and EKG Rule out any cardiac dysarhythmias #History of non-Hodgkin's lymphoma A courtesy call has been placed with the service of Dr. Db So MD Patient can follow-up as an outpatient, Dr. Strickland was notified and formed this morning and informed this am. #Incidental findings on head CT rule out Likely Paget's disease Although alkaline phosphatase is is normal. Continue trending for hypercalcemia. Will follow up with an MRI in the a.m. #Hypertension Allow for permissive hypertension however ensure blood pressure does not exceed 180 systolic over 110 diastolic Continue Amlodipine if pressure exceeds 180/110, or begin in the AM. #History of Hypothyroidism Continue levothyroxin Consider TSH and free T4 in a.m. #General conditioning PT eval in a.m. Swallow eval in a.m. Maintain aspiration precautions. Patients with TIA and stroke aspiration pneumonia can be a significant contributing factor leading to morbidity mortality. #Diet Heart healthy #DVT prophylaxis Lovenox #Code Full code VIANEY BREWER MD 10/23/16 2204: Attending MD Review Statement Attending Statement Attending MD Statement: examined this patient, discuss w/resident/PA/STORAGE CONSULTANT, agreed w/resident/PA/STORAGE CONSULTANT, discussed with family, reviewed EMR data (avail), discussed with nursing, discussed with case mgmt, reviewed images, amended to note Attending Assessment/Plan: The patient was seen and discussed with house staff. Reviewed the MRI brain with Neuroradiology and they do believe that there is a small frontal infarction that is acute (along with TIA). ECHO done at end of day and reviewed with Dr. Henderson who stated normal ECHO w/o valvular disease. OK to discharge to home today on ASA 81 mg/Plavix 75 mg daily and change statin from Lovastatin to Atorvastatin 80 mg daily. Will discuss with PCP. Consider change OP BP med to ARB which has also been demonstrated to decrease risk of recurrent stroke. Patient also given number to call for free [place] Smoking Cessation class (next 11/06). Also explained to family.
[2016-10-23 08:00] VITALS: BP 126/81
--- NOTE | 2016-10-23 08:05 | ULTRASOUND REPORT ---
EXAMINATION: DUPLEX BILATERAL CAROTID ULTRASOUND CLINICAL INFORMATION: Aphasia. Headache. Hypertension. COMPARISON: None. TECHNIQUE: Real-time ultrasound and Doppler techniques (integrating B-mode 2D vascular images, Doppler spectral analysis and color flow Doppler imaging) were utilized to interrogate the extracranial carotid and vertebral arteries bilaterally. The degree of stenosis determined by criteria similar to NASCET. FINDINGS: Right side: 1. Small amount of plaque is seen in the ECA/ICA region. The right CCA/ICA is tortuous. 2. The common carotid artery velocity is 74 cm/s. 3. The internal carotid artery velocities are 43 cm/s systolic and 18 cm/s diastolic. 4. The external carotid artery velocity is 71 cm/s. Left side: 1. No appreciable plaque is seen in the ECA/ICA region. 2. The common carotid artery velocity is 88 cm/s. 3. The internal carotid artery velocities are 43 cm/s systolic and 18 cm/s diastolic. 4. The external carotid artery velocity is 60 cm/s. ADDITIONAL FINDINGS: 1. The vertebral arteries show antegrade flow. IMPRESSION: 1. RIGHT: Minimal, nonhemodynamically significant stenosis of the proximal right internal carotid artery corresponding to a 0-49% stenosis by velocity criteria. 2. LEFT: No significant stenosis of the proximal left internal carotid artery by velocity criteria. 3. No evidence for hemodynamically significant stenosis in the external carotid arteries.
--- NOTE | 2016-10-23 11:19 | MRI REPORT ---
MR BRAIN WITHOUT CONTRAST CLINICAL INFORMATION: Slurred speech with word finding difficulty. Question Paget's disease on CT head. COMPARISON: Head CT from 10/22/2015. TECHNIQUE: MRI of the brain without contrast was obtained using routine sequences. FINDINGS: There are a few subacute lacunar infarcts within the left frontal lobe on image 61 and 57 of series 3 that exhibit increased signal on diffusion-weighted imaging and intermediate signal on the ADC map. No additional acute infarcts are appreciated. There are multiple punctate foci of susceptibility artifact within the brainstem and within the right cerebellum, likely chronic petechial microhemorrhages. There is global cerebral volume loss. T2 signal changes throughout the supratentorial white matter and brainstem suggest moderate chronic microangiopathy. There are multiple chronic lacunar infarcts within the brainstem. Chronic lacunar infarcts within the deep barajas nuclei bilaterally. The major arterial flow voids are maintained. Paranasal sinuses and mastoid air cells are well aerated. Cerebellar tonsillar position is normal. There is heterogeneous marrow signal within the clivus. The boundaries of the sphenoid sinuses are difficult to evaluate on this MRI in the previous CT. In light of the prior CT findings, further evaluation with a bone scan and possible central skull base protocol MRI with and without IV contrast would be helpful in further assessment. IMPRESSION: - There are a few subacute lacunar infarcts within the left frontal lobe. - There is heterogeneous marrow signal within the clivus. The boundaries of the sphenoid sinuses are difficult to evaluate on this MRI and the previous CT. In light of the prior CT findings, further evaluation with a bone scan and possible central skull base protocol MRI with and without IV contrast would be helpful in further assessment. 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
--- NOTE | 2016-10-23 12:08 | Cons- Cardiology ---
General Information and HPI Consulting Request Date of Consult: 10/23/16 Requested By: VIANEY BREWER MD Reason for Consult: CVA Source of Information: patient, old records History of Present Illness: Patient is a 71-year-old female admitted with new onset of neurologic abnormalities and slurred speech. Her past medical history is remarkable for a pituitary adenoma, non-Hodgkin's lymphoma, possible prior TIA 10 years ago, etc. The patient was admitted to the hospital via the emergency room after experiencing a transient episode of slurred speech which lasted about 4 hours. The patient also notes that she was confused at that time. There were apparently no other neurologic symptoms noted. The patient denies any other cardiovascular symptoms. Today, the patient appears to be doing better. She feels that she is back to her baseline. Her speech is improved. Allergies/Medications Allergies: Coded Allergies: Fish Containing Products (Severe, ANAPHYLAXIS 10/22/16) Sulfa (Sulfonamide Antibiotics) (Severe, RASH 10/22/16) Home Med List: Amlodipine Besylate 5 MG TABLET 1 TAB PO DAILY BP (Reported) PERMISSIVE HYPERTENSION Aspirin (Ecotrin*) 81 MG TABLET.DR 1 TAB PO DAILY HEART/BLOOD (Reported) Cholecalciferol (Vitamin D3) (Vitamin D) 2,000 UNIT TABLET 1 TAB PO DAILY SUPPLEMENT (Reported) Cyanocobalamin (Vitamin B-12) 1,000 MCG TABLET 1 TAB PO DAILY SUPPLEMENT ( Reported) Levothyroxine Sodium 88 MCG TABLET 1 TAB PO DAILY THYROID (Reported) Lovastatin 20 MG TABLET 1 TAB PO DAILY CHOLESTEROL (Reported) Reason to Stop at ADM: CHANGED TO ATORVASTATIN Current Medications: Current Medications Sig/Nadia Start time Last Medication Dose Route Stop Time Status Admin Acetaminophen 650 MG Q6P PRN 10/22 2029 AC PO Aspirin 0 .STK-MED ONE 10/22 1741 DC PO Aspirin 243 MG ONCE ONE 10/22 1645 DC 10/22 PO 10/22 1646 1745 Aspirin Buffered 81 MG DAILY 10/23 1000 AC 10/23 PO 1000 Atorvastatin Calcium 80 MG 1700 10/22 2030 AC 10/22 PO 2111 Cholecalciferol 2,000 IU DAILY 10/23 1000 AC 10/23 PO 1000 Clopidogrel Bisulfate 75 MG DAILY 10/23 1000 AC 10/23 PO 1000 Clopidogrel Bisulfate 0 .STK-MED ONE 10/23 0954 DC PO Clopidogrel Bisulfate 0 .STK-MED ONE 10/22 2051 DC PO Clopidogrel Bisulfate 300 MG ONCE ONE 10/22 2029 DC 10/22 PO 10/22 Cyanocobalamin 1,000 MCG DAILY 10/23 999 AC 10/23 PO 1000 Enoxaparin Sodium 40 MG 2100 10/23 2099 AC SC Enoxaparin Sodium 0 .STK-MED ONE 10/22 2051 DC SC Enoxaparin Sodium 40 MG DAILY 10/22 2018 DC 10/22 SC 0 Levothyroxine Sodium 0.088 MG DAILY 10/23 1000 AC 10/23 PO 1000 Oxycodone/ 1 TAB Q6P PRN 10/22 2029 AC Acetaminophen PO Oxycodone/ 2 TAB Q6P PRN 10/22 2029 AC Acetaminophen PO Polyethylene Glycol 17 GM DAILY PRN 10/22 2029 AC PO Senna/Docusate Sodium 1 TAB DAILY PRN 10/22 2029 AC PO Past History Travel History Traveled to [place] past 21 day No Medical History Blood Transfusion Hx: No Neurological: TIA EENT: NONE Cardiovascular: HIGH CHOLESTEROL Respiratory: NONE Gastrointestinal: NONE Hepatic: NONE Renal: NONE Musculoskeletal: NONE Psychiatric: NONE Endocrine: "THYROID" Blood Disorders: NONE Cancer(s): 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 MOTHER, , Age 90. Psychosocial History Where Do You Live? Home Who Do You Live With? spouse Services at Home: None Primary Language: Japanese Smoking Status: Current Everyday Smoker (Approximaely 30 pack year ) ETOH Use: occasional use Illicit Drug Use: denies illicit drug use Living Will? yes Functional Ability ADLs Independent: dressing, eating, toileting, bathing. Ambulation: independent IADLs Needs Assist: shopping, housework, finances, food prep, telephone, transportation, medication admin. Employment History Employment: Retired Exam & Diagnostic Data Vital Signs and I&O Vital Signs Date Time Temp Pulse Resp B/P Pulse O2 O2 Flow FiO2 Ox Delivery Rate 10/23 817 96.9 79 20 126/81 96 Room Air 10/23 0800 96 Room Air 10/23 0800 96.9 79 20 126/81 96 Room Air 10/23 0621 97.9 74 18 133/76 98 10/22 2210 97.4 75 20 127/76 95 Room Air 01/03 2155 97.4 75 20 127/76 95 Room Air 10/22 1912 96.6 84 18 128/81 95 Room Air 10/22 1642 96.9 79 20 142/75 98 Room Air 10/22 1510 97.7 88 18 148/96 99 Room Air Intake & Output 10/23 1600 10/23 0800 10/23 0000 10/22 1600 10/22 0800 10/22 0000 Intake Total 1160 Output Total 800 Balance 360 Intake, Oral 1160 Output, Urine 800 Patient 125 lb 124 lb Weight Physical Exam: General Appearance Alert, Oriented X3, Cooperative, No Acute Distress HEENT NORMAL Cardiovascular Regular Rate, Normal S1, Normal S2, 1/6 systolic murmur left sternal border Lungs Clear to Auscultation and percussion bilaterally Abdomen Normal Bowel Sounds, Soft, No Tenderness Neurological nonfocal Extremities No Clubbing, No Cyanosis, No Edema Vascular Normal Pulses Labs/Po Results: Laboratory Tests 10/23 10/22 10/22 0615 2200 1648 Chemistry Troponin I (< 0.11 ng/ml) < 0.01 < 0.01 Triglycerides (<150 mg/dL) 75 Cholesterol (<200 MG/DL) 137 LDL Cholesterol, Calc (65 - 129 mg/dL) 65 HDL Cholesterol (40 - 60 mg/dL) 57 Cholesterol/HDL Ratio (0.00 - 4.23 %) 2 Urines Urine Color (YEL,AMB,STR) YEL Urine Clarity (CLEAR) CLEAR Urine pH (5.0 - 8.0) 6.0 Ur Specific [place] (1.001 - 1.035) >= 1.030 Urine Protein (NEG,<30 MG/DL) NEG Urine Ketones (NEG) NEG Urine Nitrite (NEG) NEG Urine Bilirubin (NEG) NEG Urine Urobilinogen (0.1 - 1.0 EU/dl) 0.2 Ur Leukocyte Esterase (NEG) NEG Ur Microscopic SEDIMENT EXAMINED Urine RBC (0 - 5 /HPF) 5-10 H Urine WBC (0 - 2 /HPF) 1-3 H Ur Epithelial Cells (NONE,FEW) FEW Urine Mucus (FEW,NONE) MOD H Urine Hemoglobin (NEG) SMALL H Urine Glucose (N MG/DL) NEG 10/22 1540 Chemistry Sodium (137 - 145 mmol/L) 140 Potassium (3.5 - 5.1 mmol/L) 4.1 Chloride (98 - 107 mmol/L) 102 Carbon Dioxide (22 - 30 mmol/L) 25 Anion Gap (5 - 16) 14 BUN (7 - 17 mg/dL) 16 Creatinine (0.5 - 1.0 mg/dL) 0.7 Estimated GFR (>60 ml/min) > 60 BUN/Creatinine Ratio (7 - 25 %) 22.9 Glucose (65 - 99 mg/dL) 87 Calcium (8.4 - 10.2 mg/dL) 9.4 Total Bilirubin (0.2 - 1.3 mg/dL) 0.4 AST (14 - 36 U/L) 13 L ALT (9 - 52 U/L) 25 Alkaline Phosphatase (<127 U/L) 83 Troponin I (< 0.11 ng/ml) < 0.01 Total Protein (6.3 - 8.2 g/dL) 7.2 Albumin (3.5 - 5.0 g/dL) 4.0 Globulin (1.9 - 4.2 gm/dL) 3.2 Albumin/Globulin Ratio (1.1 - 2.2 %) 1.3 Coagulation PT (9.4 - 12.5 SEC) 11.1 INR (0.90 - 1.19) 1.06 APTT (25 - 37 SEC) 36 Hematology CBC w Diff NO MAN DIFF REQ WBC (4.8 - 10.8 /CUMM) 14.5 H RBC (4.20 - 5.40 /CUMM) 4.74 Hgb (12.0 - 16.0 G/DL) 13.0 Hct (37 - 47 %) 39.3 MCV (81.0 - 99.0 FL) 82.9 MCH (27.0 - 31.0 PG) 27.3 RDW (11.5 - 14.5 %) 15.1 H Plt Count (130 - 400 /CUMM) 374 MPV (7.4 - 10.4 FL) 9.0 Gran % (42.2 - 75.2 %) 70.4 Lymphocytes % (20.5 - 51.1 %) 21.1 Monocytes % (1.7 - 9.3 %) 6.6 Eosinophils % (0 - 5 %) 1.4 Basophils % (0.0 - 2.0 %) 0.5 Absolute Granulocytes (1.4 - 6.5 /CUMM) 10.2 H Absolute Lymphocytes (1.2 - 3.4 /CUMM) 3.1 Absolute Monocytes (0.10 - 0.60 /CUMM) 1.0 H Absolute Eosinophils (0.0 - 0.7 /CUMM) 0.2 Absolute Basophils (0.0 - 0.2 /CUMM) 0.1 PUBS MCHC (33.0 - 37.0 G/DL) 33.0 Diagnostic Data CXR Results IMPRESSION: No focal airspace consolidation to suggest infection. Nodular opacities within the right upper lobe and right lung base, measuring up to 2.4 x 3.4 cm within the right upper lobe. These nodular opacities are indeterminate. Malignancy cannot be excluded. Recommend correlation with contrast-enhanced chest CT. Assessment/Plan Assessment/Plan Assessment: 1. Transient speech abnormality suggestive of TIA 2. Hypertension 3. History of non-Hodgkin's lymphoma 4. Pulmonary nodules noted on chest x-ray 5. Hyperlipidemia 6. Hypothyroidism Recommendations: -The patient seems to be doing well today. No residual symptoms. -Neurology input pending -Echocardiogram pending -On punch box tender for 24 hours -Eventual consideration for long-term monitoring as outpatient ( Holter monitor versus event monitor). Consult Acknowledgment - Thank you for your consult request.
--- NOTE | 2016-10-23 13:45 | Cons- Neurology ---
General Information and HPI Consulting Request Date of Consult: 10/23/16 Requested By: VIANEY BREWER MD Reason for Consult: Transient inability to speak Source of Information: patient, family Exam Limitations: no limitations History of Present Illness: 71-year-old woman suddenly became unable to find words or speak at breakfast the day before yesterday. Later in the morning she took a nap, slept several hours is better but not completely resolved on awakening. By yesterday morning she leaves everything was back 100%. She saw her primary physician who recommended hospital evaluation. No associated headache, visual disturbance, lateralized numbness or weakness. She was told of "mini strokes" years ago but does not recall details. Allergies/Medications Allergies: Coded Allergies: Fish Containing Products (Severe, ANAPHYLAXIS 10/22/16) Sulfa (Sulfonamide Antibiotics) (Severe, RASH 10/22/16) Home Med List: Amlodipine Besylate 5 MG TABLET 1 TAB PO DAILY BP (Reported) PERMISSIVE HYPERTENSION Aspirin (Ecotrin*) 81 MG TABLET.DR 1 TAB PO DAILY HEART/BLOOD (Reported) Cholecalciferol (Vitamin D3) (Vitamin D) 2,000 UNIT TABLET 1 TAB PO DAILY SUPPLEMENT (Reported) Cyanocobalamin (Vitamin B-12) 1,000 MCG TABLET 1 TAB PO DAILY SUPPLEMENT ( Reported) Levothyroxine Sodium 88 MCG TABLET 1 TAB PO DAILY THYROID (Reported) Lovastatin 20 MG TABLET 1 TAB PO DAILY CHOLESTEROL (Reported) Reason to Stop at ADM: CHANGED TO ATORVASTATIN Current Medications: Current Medications Sig/Nadia Start time Last Medication Dose Route Stop Time Status Admin Acetaminophen 650 MG Q6P PRN 10/22 2029 AC PO Aspirin 0 .STK-MED ONE 10/22 1741 DC PO Aspirin 243 MG ONCE ONE 10/22 1645 DC 10/22 PO 10/22 1646 1745 Aspirin Buffered 81 MG DAILY 10/23 1000 AC 10/23 PO 1000 Atorvastatin Calcium 80 MG 1700 10/22 2029 AC 10/22 PO 2110 Cholecalciferol 2,000 IU DAILY 10/23 1000 AC 10/23 PO 1000 Clopidogrel Bisulfate 75 MG DAILY 10/23 1000 AC 10/23 PO 1000 Clopidogrel Bisulfate 0 .STK-MED ONE 10/23 0954 DC PO Clopidogrel Bisulfate 0 .STK-MED ONE 10/22 2051 DC PO Clopidogrel Bisulfate 300 MG ONCE ONE 10/22 2029 DC 10/22 PO 10/22 Cyanocobalamin 1,000 MCG DAILY 10/23 1000 AC 10/23 PO 1000 Enoxaparin Sodium 40 MG 2100 10/23 2099 AC SC Enoxaparin Sodium 0 .STK-MED ONE 10/22 2051 DC SC Enoxaparin Sodium 40 MG DAILY 10/22 2018 DC 10/22 SC 0 Levothyroxine Sodium 0.088 MG DAILY 10/23 1000 AC 10/23 PO 1000 Oxycodone/ 1 TAB Q6P PRN 10/22 2029 AC Acetaminophen PO Oxycodone/ 2 TAB Q6P PRN 10/22 2029 AC Acetaminophen PO Polyethylene Glycol 17 GM DAILY PRN 10/22 2029 AC PO Senna/Docusate Sodium 1 TAB DAILY PRN 10/22 2029 AC PO Review of Systems Review of Systems: ROS: The patient had no constitutional complaints. Vision clear, no diplopia ENT: No vertigo or tinnitus or hearing loss Cardiac: |Chest pain and palpitations denied Respiratory: No dyspnea or wheezing GI: No abdominal pain nausea or diarrhea. 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 MOTHER, , Age 90. Psychosocial History Where Do You Live? Home Who Do You Live With? spouse Services at Home: None Primary Language: Czech Smoking Status: Current Everyday Smoker (Approximaely 30 pack year ) ETOH Use: occasional use Illicit Drug Use: denies illicit drug use Living Will? yes Functional Ability ADLs Independent: dressing, eating, toileting, bathing. Ambulation: independent IADLs Needs Assist: shopping, housework, finances, food prep, telephone, transportation, medication admin. Employment History Employment: Retired Exam & Diagnostic Data Vital Signs and I&O Vital Signs Date Time Temp Pulse Resp B/P Pulse O2 O2 Flow FiO2 Ox Delivery Rate 10/23 0818 96.9 79 20 126/81 96 Room Air 10/23 0800 96 Room Air 10/23 0800 96.9 79 20 126/81 96 Room Air 10/23 0621 97.9 74 18 133/76 98 10/22 2210 97.4 75 20 127/76 95 Room Air 10/22 2155 97.4 75 20 127/76 95 Room Air 10/22 1912 96.6 84 18 128/81 95 Room Air 10/22 1642 96.9 79 20 142/75 98 Room Air 10/22 1510 97.7 88 18 148/96 99 Room Air Intake & Output 10/23 1600 10/23 0800 10/23 0000 Intake Total 1160 Output Total 800 Balance 360 Intake, Oral 1160 Output, Urine 800 Patient 125 lb Weight Physical Exam: On exam the patient appeared generally well and in no distress. No carotid bruits and no cardiac murmur. No peripheral edema Mental status: Alert, attentive, fully oriented, no language errors, no dysnomia for common objects, calculations intact, no left right confusion, recall and general fund of knowledge seem intact. No dysarthria Funduscopic unremarkable Visual [place] full , Eye movements full without nystagmus, pupils midsize equal round and reactive to light. Facial movement normal bilaterally Facial sensation normal bilaterally Hearing intact bilaterally Uvula elevates midline Tongue protrusion is midline Shoulder shrug symmetric Motor power and tone normal in all 4 extremities Sensation intact to primary modes Tendon reflexes normal and symmetric without pathologic signs Coordination no ataxia Gait testing deferred Last 48 Hours of Lab Results: Laboratory Tests 10/23 10/22 10/22 0615 2200 1648 Chemistry Troponin I (< 0.11 ng/ml) < 0.01 < 0.01 Triglycerides (<150 mg/dL) 75 Cholesterol (<200 MG/DL) 137 LDL Cholesterol, Calc (65 - 129 mg/dL) 65 HDL Cholesterol (40 - 60 mg/dL) 57 Cholesterol/HDL Ratio (0.00 - 4.23 %) 2 Urines Urine Color (YEL,AMB,STR) YEL Urine Clarity (CLEAR) CLEAR Urine pH (5.0 - 8.0) 6.0 Ur Specific [place] (1.001 - 1.035) >= 1.030 Urine Protein (NEG,<30 MG/DL) NEG Urine Ketones (NEG) NEG Urine Nitrite (NEG) NEG Urine Bilirubin (NEG) NEG Urine Urobilinogen (0.1 - 1.0 EU/dl) 0.2 Ur Leukocyte Esterase (NEG) NEG Ur Microscopic SEDIMENT EXAMINED Urine RBC (0 - 5 /HPF) 5-10 H Urine WBC (0 - 2 /HPF) 1-3 H Ur Epithelial Cells (NONE,FEW) FEW Urine Mucus (FEW,NONE) MOD H Urine Hemoglobin (NEG) SMALL H Urine Glucose (N MG/DL) NEG 10/22 1540 Chemistry Sodium (137 - 145 mmol/L) 140 Potassium (3.5 - 5.1 mmol/L) 4.1 Chloride (98 - 107 mmol/L) 102 Carbon Dioxide (22 - 30 mmol/L) 25 Anion Gap (5 - 16) 14 BUN (7 - 17 mg/dL) 16 Creatinine (0.5 - 1.0 mg/dL) 0.7 Estimated GFR (>60 ml/min) > 60 BUN/Creatinine Ratio (7 - 25 %) 22.9 Glucose (65 - 99 mg/dL) 87 Calcium (8.4 - 10.2 mg/dL) 9.4 Total Bilirubin (0.2 - 1.3 mg/dL) 0.4 AST (14 - 36 U/L) 13 L ALT (9 - 52 U/L) 25 Alkaline Phosphatase (<127 U/L) 83 Troponin I (< 0.11 ng/ml) < 0.01 Total Protein (6.3 - 8.2 g/dL) 7.2 Albumin (3.5 - 5.0 g/dL) 4.0 Globulin (1.9 - 4.2 gm/dL) 3.2 Albumin/Globulin Ratio (1.1 - 2.2 %) 1.3 Coagulation PT (9.4 - 12.5 SEC) 11.1 INR (0.90 - 1.19) 1.06 APTT (25 - 37 SEC) 36 Hematology CBC w Diff NO MAN DIFF REQ WBC (4.8 - 10.8 /CUMM) 14.5 H RBC (4.20 - 5.40 /CUMM) 4.74 Hgb (12.0 - 16.0 G/DL) 13.0 Hct (37 - 47 %) 39.3 MCV (81.0 - 99.0 FL) 82.9 MCH (27.0 - 31.0 PG) 27.3 RDW (11.5 - 14.5 %) 15.1 H Plt Count (130 - 400 /CUMM) 374 MPV (7.4 - 10.4 FL) 9.0 Gran % (42.2 - 75.2 %) 70.4 Lymphocytes % (20.5 - 51.1 %) 21.1 Monocytes % (1.7 - 9.3 %) 6.6 Eosinophils % (0 - 5 %) 1.4 Basophils % (0.0 - 2.0 %) 0.5 Absolute Granulocytes (1.4 - 6.5 /CUMM) 10.2 H Absolute Lymphocytes (1.2 - 3.4 /CUMM) 3.1 Absolute Monocytes (0.10 - 0.60 /CUMM) 1.0 H Absolute Eosinophils (0.0 - 0.7 /CUMM) 0.2 Absolute Basophils (0.0 - 0.2 /CUMM) 0.1 PUBS MCHC (33.0 - 37.0 G/DL) 33.0 Imaging/Other Studies: Carotid Dopplers: IMPRESSION: 1. RIGHT: Minimal, nonhemodynamically significant stenosis of the proximal right internal carotid artery corresponding to a 0-49% stenosis by velocity criteria. 2. LEFT: No significant stenosis of the proximal left internal carotid artery by velocity criteria. 3. No evidence for hemodynamically significant stenosis in the external carotid arteries. MRI of the brain: IMPRESSION: - There are a few subacute lacunar infarcts within the left frontal lobe. - There is heterogeneous marrow signal within the clivus. The boundaries of the sphenoid sinuses are difficult to evaluate on this MRI and the previous CT. In light of the prior CT findings, further evaluation with a bone scan and possible central skull base protocol MRI with and without IV contrast would be helpful in further assessment. 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 Assessment/Plan Assessment: Transient ischemic attack, left MCA territory with transient aphasia. Clinically recovered, no evidence of acute infarct on MRI evidence is present for vessel disease. The patient was on aspirin and statin, Plavix has been added and she atorvastatin dose increased to 80 mg daily. Recommendations: Continue telemetry while in the hospital, rule out dysrhythmias Echocardiogram Continue current meds if stable this patient would be a good candidate for early discharge and outpatient follow-up Smoking cessation discussed with the patient still smokes 10 cigarettes daily Please call back if any further neurologic consultation is required Consult Acknowledgment - Thank you for your consult request.
--- NOTE | 2016-10-23 13:50 | Patient Discharge Instructions ---
Discharge Instructions General Discharge Information You were seen/treated for: Acute subacute lacunar infarcts within the left frontal lobe. Hypothyroid Watch for these problems: Fever, nausea, vomiting, chills, weakness, increased generalized edema. Palpitations. Chest pain. Shortness of breath. If you have any adverse reactions from any of the medications prescribed please inform your primary care physician and you may be required to come back to the emergency department. Thank you for letting us be part of your care. Special Instructions: Please follow-up with your primary care physician on 10/28/2016. This is for a post hospital discharge follow-up. Please follow-up with the radio program checker on 10/30/2016. We have provided you with a referral. You might be considered for eventual consideration for long-term monitoring as outpatient ( Holter monitor versus event monitor). Please follow-up with the neurologist on 10/30/2016. We have provided you with a referral. Diet Recommended Diet: Heart Healthy Activity Full Activity/No Limits: No Activity Self Limited: Yes (As Tolerated) Acute Coronary Syndrome Inclusion Criteria At DC or during hospital stay patient has or had the following: ACS DIAGNOSIS No Discharge Core Measures Meds if any: Prescribed or Continued at Discharge Meds if any: NOT Prescribed or Continued at Discharge Congestive Heart Failure Inclusion Criteria At DC or during hospital stay patient has or had the following: CHF DIAGNOSIS No Discharge Core Measures Meds if any: Prescribed or Continued at Discharge Meds if any: NOT Prescribed or Continued at Discharge Cerebrovascular accident Inclusion Criteria At DC or during hospital stay patient has or had the following: CVA/TIA Diagnosis Yes Discharge Core Measures Meds if any: Prescribed or Continued at Discharge Meds if any: NOT Prescribed or Continued at Discharge Venous thromboembolism Inclusion Criteria VTE Diagnosis No VTE Type NONE VTE Confirmed by (Test) NONE Discharge Core Measures - Per Current guidelines, there needs to be overlap - treatment for the first 5 days of Warfarin therapy. - If discharged on Warfarin prior to 5 days of - overlap therapy, the patient will need to be - assessed for post discharge needs including - *Post discharge parental anticoagulation - *Warfarin and/or parental anticoagulation education - *Follow up date to check INR post discharge At least 5 days overlap therapy as Inpatient No Meds if any: Prescribed or Continued at Discharge Note: Overlap Therapy is Warfarin and Anticoagulant Meds if any: NOT Prescribed or Continued at Discharge
[2016-10-23] MEDS ORDERED: ATORVASTATIN CA80 M1 PO (14:41)
[2016-10-23] MEDS ORDERED: PLAVIX75 M1 PO (14:41)
--- NOTE | 2016-10-23 15:03 | Discharge Summary ---
Visit Information Visit Dates Admission Date: 10/22/16 Discharge Date: 10/23/16 Hospital Course Course Attending Physician: VIANEY BREWER MD Primary Care Physician: SALLIE KHAN MD Other Care Providers: Anderson ASTORGA, Vianey Villegas MD, [facility] Course: Ms. Draper is a 71-year-old female with past medical history of essential HTN, hyperlipidemia, hypothyroidism, pituitary surgery, non-Hodgkin lymphoma (s/p Rituxan therapy) and questionable TIA approximately 10 years ago who presented to the emergency department at [facility] on 10/22/2016 after experiencing a transient episode of slurred speech on 10/21/2016 at approximately 8.00 am. She was admitted to our service and below is a summary of the care she received. #Transient Aphasia likely due to ministroke with rapid symptom resolution. Upon admission head CT showed no evidence of any acute bleed or territorial infarct. Vertebral Doppler of the carotids showed right internal carotid artery corresponding to a 0-49% stenosis. Head MRI upon further review showed evidence of subacute lacunar infarcts within the left frontal lobe. A neurology consult was obtained on day 2 of admission. They further agreed on the patient's continuation of aspirin, Plavix and high-dose statin. They subsequently recommended an outpatient follow-up. Prior to discharge the patient underwent an echocardiogram which showed no evidence of any acute abnormalities which could explain her symptoms. #Rule out ACS The patient did have serial troponins and EKGs trended. This was to ensure no acute cardio cardiac processes may have contributed to the patient's symptoms.. All her initial were negative. #History of non-Hodgkin's lymphoma A courtesy call has been placed with the service of MD Dr. Alton Morales was notified. The patient was advised to follow up as an outpatient. #Hypertension We ensured that the patients blood pressure was maintained above the Systolic 140 range to allow per permissive hypertension. Her Amlodipine was not administered. #Hyperlipidemia The patient was taking Lovastatin. She was switched to Atorvastatin 80 mg. She was discharged home on this medication. #History of Hypothyroidism The patient was continued on her levothyroxine: 0.088mg. # Nicotine Dependance. The patient does have a history of long standing nicotine dependance. She was smoking cessation was encouraged. #Incidental finding: Nodular opacities Chest X-Ray revealed Nodular opacities within the right upper lobe. The patient was advised to follow up as an outpatient. Her PCP was informed of this incidental finding. Allergies: Coded Allergies: Fish Containing Products (Severe, ANAPHYLAXIS 10/22/16) Sulfa (Sulfonamide Antibiotics) (Severe, RASH 10/22/16) Pertinent Lab Results: SERVICE DATE: 10/23/16-2020 EXAM TYPE: MRI - MRI-HEAD W/O LEILANI MR BRAIN WITHOUT CONTRAST CLINICAL INFORMATION: Slurred speech with word finding difficulty. Question Paget's disease on CT head. COMPARISON: Head CT from 10/22/2015. TECHNIQUE: MRI of the brain without contrast was obtained using routine sequences. FINDINGS: There are a few subacute lacunar infarcts within the left frontal lobe on image 61 and 57 of series 3 that exhibit increased signal on diffusion-weighted imaging and intermediate signal on the ADC map. No additional acute infarcts are appreciated. There are multiple punctate foci of susceptibility artifact within the brainstem and within the right cerebellum, likely chronic petechial microhemorrhages. There is global cerebral volume loss. T2 signal changes throughout the supratentorial white matter and brainstem suggest moderate chronic microangiopathy. There are multiple chronic lacunar infarcts within the brainstem. Chronic lacunar infarcts within the deep zhou nuclei bilaterally. The major arterial flow voids are maintained. Paranasal sinuses and mastoid air cells are well aerated. Cerebellar tonsillar position is normal. There is heterogeneous marrow signal within the clivus. The boundaries of the sphenoid sinuses are difficult to evaluate on this MRI in the previous CT. In light of the prior CT findings, further evaluation with a bone scan and possible central skull base protocol MRI with and without IV contrast would be helpful in further assessment. IMPRESSION: - There are a few subacute lacunar infarcts within the left frontal lobe. - There is heterogeneous marrow signal within the clivus. The boundaries of the sphenoid sinuses are difficult to evaluate on this MRI and the previous CT. In light of the prior CT findings, further evaluation with a bone scan and possible central skull base protocol MRI with and without IV contrast would be helpful in further assessment. - Moderate chronic microangiopathy and multiple chronic lacunar infarcts within the brainstem and deep zhou nuclei bilaterally. 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 DICTATED BY: HARDIK SIERRA MD SERVICE DATE: 10/23/16- EXAM TYPE: CARD - ECHOCARDIOGRAM MACEK, NAYA Age: 71 : 1945 Gender: F Exam Date: 10/23/2016 15:56 Exam Location: ER Ht (in): 62 Wt (lb): 124 BSA: 1.57 BP: 126 / 81 Ordering Physician: JESSICA REA MD Referring Physician: Elizabeth Barron MD Technologist: Naya Izaguirre TORY Room Number: [id number] Indications: STROKE Rhythm: Sinus Technical Quality: Good FINDINGS Left Ventricle Normal size left ventricle. No obvious regional wall motion abnormalities. Normal left ventricular ejection fraction estimated at 55-60%. Right Ventricle Normal right ventricular size and function. Right Atrium Normal right atrial size. Left Atrium Left atrial size at the upper limits of normal. Mitral Valve Mild thickening/calcification of the anterior mitral valve leaflet. Mild mitral annular calcification. Trace to mild mitral regurgitation. Aortic Valve Trileaflet aortic valve. Focal thickening of the aortic valve cusps. No aortic stenosis. No aortic regurgitation. Tricuspid Valve Tricuspid valve not well visualized, grossly normal. Trace to mild tricuspid regurgitation. Pulmonic Valve Pulmonic valve not well visualized, grossly normal. Trace pulmonic regurgitation. Pericardium No pericardial effusion. Great Vessels Mildly dilated proximal ascending aorta (tube). CONCLUSIONS 1. Minimal aortic sclerosis is present with no valvular stenosis or insufficiency. 2. The ascending aorta is minimally dilated. 3. Mild thickening and calcification of the mitral leaflets is present with mild anular calcification and minimal to mild mitral insufficiency. 4. There is no significant pericardial fluid present. 5. The left ventricular chamber size and systolic function appear normal with no resting wall motion abnormalities. 6. THe right heart structures are grossly normal. Minimal to mild tricuspid insufficiency is present with minimal pulmonic insufficiency. The RV sytolic pressure was not accurately assessed. 7. Mild lipomatous atrial septal hypertrophy is present. 8. No definite embolic sources were identified on this study. If clinically indicated, a CHEVY would better exclude potential embolic sources. Elizabeth Barron M.D. (Electronically Signed) Final Date: 23 October 2016 17:06 MEASUREMENTS (Male / Female) Normal Values 2D ECHO LV Diastolic Diameter PLAX 3.3 cm 4.2 - 5.9 / 3.9 - 5.3 cm LV Systolic Diameter PLAX 2.0 cm 2.1 - 4.0 cm LV Fractional Shortening PLAX 39.4 % 25 - 46 % LV Ejection Fraction 2D Teich 71.2 % IVS Diastolic Thickness 0.9 cm LVPW Diastolic Thickness 0.7 cm LV Relative Wall Thickness 0.5 RV Internal Dim ED PLAX 2.4 cm 1.9 - 3.8 cm LVOT Diameter 2.0 cm Aortic Root Diameter 2.9 cm LA Systolic Diameter LX 3.1 cm 3.0 - 4.0 / 2.7 - 3.8 cm LA Volume 18.0 cm 18 - 58 / 22 - 52 cm Ascending Aorta Diameter 3.7 cm DOPPLER AV Peak Velocity 105.0 cm/s AV Peak Gradient 4.4 mmHg AV Mean Velocity 74.9 cm/s AV Mean Gradient 2.0 mmHg AV Velocity Time Integral 20.6 cm LVOT Peak Velocity 79.7 cm/s LVOT Peak Gradient 2.5 mmHg LVOT Mean Velocity 55.4 cm/s LVOT Mean Gradient 1.0 mmHg LVOT Velocity Time Integral 18.3 cm LVOT Stroke Volume 57.5 cm AV Area Cont Eq vti 2.8 cm AV Area Cont Eq pk 2.4 cm MV Peak Velocity 106.0 cm/s MV Peak Gradient 4.5 mmHg MV Mean Velocity 58.6 cm/s MV Mean Gradient 2.0 mmHg Mitral E Point Velocity 57.8 cm/s Mitral A Point Velocity 82.9 cm/s Mitral E to A Ratio 0.7 MV PHT Velocity 93.5 cm/s MV Deceleration [place] 419.0 cm/s MV Pressure Half Time 66.9 ms MV Area PHT 3.3 cm MV Deceleration Time 267.0 ms PV Peak Velocity 82.6 cm/s PV Peak Gradient 2.7 mmHg PV Mean Velocity 57.2 cm/s PV Mean Gradient 2.0 mmHg PV Velocity Time Integral 15.5 cm LV E' Lateral Velocity 6.6 cm/s Mitral E to LV E' Lateral Ratio 8.7 LV E' Septal Velocity 8.6 cm/s Mitral E to LV E' Septal Ratio 6.7 DICTATED BY: Kiki BARRON MD SERVICE DATE: 10/22/16 EXAM TYPE: US - [id number] DOPPLER EXAMINATION: DUPLEX BILATERAL CAROTID ULTRASOUND CLINICAL INFORMATION: Aphasia. Headache. Hypertension. COMPARISON: None. TECHNIQUE: Real-time ultrasound and Doppler techniques (integrating B-mode 2D vascular images, Doppler spectral analysis and color flow Doppler imaging) were utilized to interrogate the extracranial carotid and vertebral arteries bilaterally. The degree of stenosis determined by criteria similar to NASCET. FINDINGS: Right side: 1. Small amount of plaque is seen in the ECA/ICA region. The right CCA/ICA is tortuous. 2. The common carotid artery velocity is 74 cm/s. 3. The internal carotid artery velocities are 43 cm/s systolic and 18 cm/s diastolic. 4. The external carotid artery velocity is 71 cm/s. Left side: 1. No appreciable plaque is seen in the ECA/ICA region. 2. The common carotid artery velocity is 88 cm/s. 3. The internal carotid artery velocities are 43 cm/s systolic and 18 cm/s diastolic. 4. The external carotid artery velocity is 60 cm/s. ADDITIONAL FINDINGS: 1. The vertebral arteries show antegrade flow. IMPRESSION: 1. RIGHT: Minimal, nonhemodynamically significant stenosis of the proximal right internal carotid artery corresponding to a 0-49% stenosis by velocity criteria. 2. LEFT: No significant stenosis of the proximal left internal carotid artery by velocity criteria. 3. No evidence for hemodynamically significant stenosis in the external carotid arteries. DICTATED BY: ILDA MARCH MD SERVICE DATE: 10/22/16 EXAM TYPE: RAD - XRY-PORTABLE CHEST XRAY EXAMINATION: XR PORTABLE CHEST CLINICAL INFORMATION: Confusion. Cardiomegaly. Evaluate for pneumonia. COMPARISON: None. TECHNIQUE: Portable view of the chest was obtained. FINDINGS: Single AP view of the chest demonstrates pulmonary hypoinflation. Of note, there are nodular opacities within the right upper lobe and right lung base, measuring approximately 2.4 x 3.4 cm and 1.4 cm respectively. There is minimal dependent atelectasis. Cardiac mediastinal contours are within normal limits. Soft tissues appear unremarkable. No acute osseous abnormality is demonstrated. IMPRESSION: No focal airspace consolidation to suggest infection. Nodular opacities within the right upper lobe and right lung base, measuring up to 2.4 x 3.4 cm within the right upper lobe. These nodular opacities are indeterminate. Malignancy cannot be excluded. Recommend correlation with contrast-enhanced chest CT. DICTATED BY: MEGHANA SOTO MDENNA EXAM TYPE: CAT - CT HEAD WO IV CONTRAST EXAMINATION: CT HEAD WITHOUT CONTRAST CLINICAL INFORMATION: Slurred speech. Assess for intracranial pathology. COMPARISON: None. TECHNIQUE: Contiguous axial imaging was performed from the skull base to vertex without intravenous administration of contrast. DLP: 529.16 mGy-cm. FINDINGS: There is no evidence of acute intracranial hemorrhage or territorial infarction. No abnormal mass effect or midline shift is seen. Zhou to white matter differentiation is well preserved. No extra-axial fluid collections are identified. The ventricles and sulci are commensurately prominent consistent with mild diffuse volume loss. There are patchy areas of low attenuation in the periventricular and subcortical white matter, most consistent with microvascular ischemic disease. There are areas of low attenuation in the bilateral basal ganglia and within the jose, consistent with chronic infarcts. There is diffuse heterogenous density from the body of the sphenoid bone and the clivus. There are degenerative changes in the temporomandibular joint. The soft tissues are unremarkable. The visualized mastoid air cells and paranasal sinuses are well-aerated. IMPRESSION: 1. There are no acute bleeds or territorial infarcts. 2. Heterogenous density is noted in the body of the sphenoid bone and the clivus, which may be consistent with an infiltrative process, a fibro-osseous process or Paget's disease. Recommend MRI scan for further assessment. 3. There are sequelae of microvascular ischemic disease, chronic infarcts and diffuse volume loss. DICTATED BY: BESSY TUBBS MD Disposition Summary Disposition Principal Diagnosis: Transient Aphasia likely due to ministroke with rapid symptom resolution. Additional Diagnosis: #Rule out ACS #History of non-Hodgkin's lymphoma #Hypertension #Hyperlipidemia #History of Hypothyroidism # Nicotine Dependance. #Incidental finding: Nodular opacities Discharge Disposition: home or self care Discharge Instructions General Discharge Information Code Status: Full Code Patient's Diet: Heart Healthy Patient's Activity: As Tolerated Follow-Up Instructions/Appts: Please follow-up with your primary care physician on 10/28/2016. This is for a post hospital discharge follow-up. Please follow-up with the neurological surgery teacher on 10/30/2016. We have provided you with a referral. You might be considered for eventual consideration for long-term monitoring as outpatient ( Holter monitor versus event monitor). Please follow-up with the neurologist on 10/30/2016. We have provided you with a referral. Medications at Discharge Discharge Medications: Stop taking the following medications: Lovastatin (Lovastatin) 20 MG TABLET ORAL DAILY Qty = 90 Continue taking these medications: Levothyroxine Sodium (Levothyroxine Sodium) 88 MCG TABLET 1 Tablet ORAL DAILY Qty = 90 Comments: Last Taken: 10/23/15 Time: 0800 Amlodipine Besylate (Amlodipine Besylate) 5 MG TABLET 1 Tablet ORAL DAILY Qty = 90 Instructions: PERMISSIVE HYPERTENSION Comments: DID NOT RECEIVE IN HOSPITAL Cyanocobalamin (Vitamin B-12) 1,000 MCG TABLET 1 Tablet ORAL DAILY Comments: Last Taken: 10/23/15 Time: 0800 Cholecalciferol (Vitamin D3) (Vitamin D) 2,000 UNIT TABLET 1 Tablet ORAL DAILY Comments: Last Taken: 10/23/15 Time: 0800 Aspirin (Ecotrin*) 81 MG TABLET.DR 1 Tablet ORAL DAILY Comments: Last Taken: 10/23/15 Time: 0800 Start taking the following new medications: Clopidogrel Bisulfate (Plavix) 75 MG TABLET 75 Milligram ORAL DAILY Days = 30 No Refills Comments: Last Taken: 10/23/15 Time: 0800 Atorvastatin Calcium (Atorvastatin Calcium) 80 MG TABLET 80 Milligram ORAL 5 PM Days = 30 No Refills Comments: Last Taken: 10/23/15 Time: 1700 Copies To: ALISON ASTORGA,RHINA [place]; BILL ASTORGA,SALLIE; ALTON ASTORGA,DAYDAY; ANDERSON ASTORGA,Kiki SIMONS Attending MD Review Statement Documenting Attending: VIANEY BREWER MD Other Findings: Reviewed the MRI with Neuroradiology and they do believe that this patient had an acute small frontal CVA in conjunction with the TIA noted above. The patient will need follow-up with PCP, Neuro, & Cardiology as noted. Also needs follow-up of pulmonary nodules incidentally noted on CXR. will need follow-up with PCP, Neuro, & Cardiology as noted. Also needs follow-up of pulmonary nodules incidentally noted on CXR. of pulmonary nodules incidentally noted on CXR.
--- NOTE | 2016-10-23 17:07 | ECHOCARDIOGRAM REPORT ---
NERY AUSTIN Age: 71 : 1945 Gender: F Exam Date: 10/23/2016 15:56 Exam Location: ER Ht (in): 62 Wt (lb): 124 BSA: 1.57 BP: 126 / 81 Ordering Physician: JESSICA REA MD Referring Physician: Elizabeth Henderson MD Technologist: Jose Robertoiggyranulfo Nery [facility] Room Number: [id number] Indications: STROKE Rhythm: Sinus Technical Quality: Good FINDINGS Left Ventricle Normal size left ventricle. No obvious regional wall motion abnormalities. Normal left ventricular ejection fraction estimated at 55-60%. Right Ventricle Normal right ventricular size and function. Right Atrium Normal right atrial size. Left Atrium Left atrial size at the upper limits of normal. Mitral Valve Mild thickening/calcification of the anterior mitral valve leaflet. Mild mitral annular calcification. Trace to mild mitral regurgitation. Aortic Valve Trileaflet aortic valve. Focal thickening of the aortic valve cusps. No aortic stenosis. No aortic regurgitation. Tricuspid Valve Tricuspid valve not well visualized, grossly normal. Trace to mild tricuspid regurgitation. Pulmonic Valve Pulmonic valve not well visualized, grossly normal. Trace pulmonic regurgitation. Pericardium No pericardial effusion. Great Vessels Mildly dilated proximal ascending aorta (tube). CONCLUSIONS 1. Minimal aortic sclerosis is present with no valvular stenosis or insufficiency. 2. The ascending aorta is minimally dilated. 3. Mild thickening and calcification of the mitral leaflets is present with mild anular calcification and minimal to mild mitral insufficiency. 4. There is no significant pericardial fluid present. 5. The left ventricular chamber size and systolic function appear normal with no resting wall motion abnormalities. 6. THe right heart structures are grossly normal. Minimal to mild tricuspid insufficiency is present with minimal pulmonic insufficiency. The RV sytolic pressure was not accurately assessed. 7. Mild lipomatous atrial septal hypertrophy is present. 8. No definite embolic sources were identified on this study. If clinically indicated, a CHEVY would better exclude potential embolic sources. Elizabeth Henderson M.D. (Electronically Signed) Final Date: 23 October 2016 17:06 MEASUREMENTS (Male / Female) Normal Values 2D ECHO LV Diastolic Diameter PLAX 3.3 cm 4.2 - 5.9 / 3.9 - 5.3 cm LV Systolic Diameter PLAX 2.0 cm 2.1 - 4.0 cm LV Fractional Shortening PLAX 39.4 % 25 - 46 % LV Ejection Fraction 2D Teich 71.2 % IVS Diastolic Thickness 0.9 cm LVPW Diastolic Thickness 0.7 cm LV Relative Wall Thickness 0.5 RV Internal Dim ED PLAX 2.4 cm 1.9 - 3.8 cm LVOT Diameter 2.0 cm Aortic Root Diameter 2.9 cm LA Systolic Diameter LX 3.1 cm 3.0 - 4.0 / 2.7 - 3.8 cm LA Volume 18.0 cm 18 - 58 / 22 - 52 cm Ascending Aorta Diameter 3.7 cm DOPPLER AV Peak Velocity 105.0 cm/s AV Peak Gradient 4.4 mmHg AV Mean Velocity 74.9 cm/s AV Mean Gradient 2.0 mmHg AV Velocity Time Integral 20.6 cm LVOT Peak Velocity 79.7 cm/s LVOT Peak Gradient 2.5 mmHg LVOT Mean Velocity 55.4 cm/s LVOT Mean Gradient 1.0 mmHg LVOT Velocity Time Integral 18.3 cm LVOT Stroke Volume 57.5 cm AV Area Cont Eq vti 2.8 cm AV Area Cont Eq pk 2.4 cm MV Peak Velocity 106.0 cm/s MV Peak Gradient 4.5 mmHg MV Mean Velocity 58.6 cm/s MV Mean Gradient 2.0 mmHg Mitral E Point Velocity 57.8 cm/s Mitral A Point Velocity 82.9 cm/s Mitral E to A Ratio 0.7 MV PHT Velocity 93.5 cm/s MV Deceleration [place] 419.0 cm/s MV Pressure Half Time 66.9 ms MV Area PHT 3.3 cm MV Deceleration Time 267.0 ms PV Peak Velocity 82.6 cm/s PV Peak Gradient 2.7 mmHg PV Mean Velocity 57.2 cm/s PV Mean Gradient 2.0 mmHg PV Velocity Time Integral 15.5 cm LV E' Lateral Velocity 6.6 cm/s Mitral E to LV E' Lateral Ratio 8.7 LV E' Septal Velocity 8.6 cm/s Mitral E to LV E' Septal Ratio 6.7
[2016-10-23 17:09] VITALS: BP 155/85
== END 2016-10-23 18:28 | disposition home health service (06) | DRG 69 ==
LOC: ERH 15:04 → ERHI 16:27
PROVIDERS: Physician Assistant; Student in an Organized Health Care Education/Training Program; ADMIT Internal Medicine
DX: G45.9 Transient cerebral ischemic attack, unspecified (principal); I10 Essential (primary) hypertension; E78.5 Hyperlipidemia, unspecified; E03.9 Hypothyroidism, unspecified; F17.210 Nicotine dependence, cigarettes, uncomplicated; Z85.72 Personal history of non-Hodgkin lymphomas
CPT/HCPCS: 70551; ERO; 81001; 93005; 93010; 93306; 97001-GP; 97162-GP; G8978-GP; G8979-GP; G8980-GP; J1650; J3490